=== PATIENT | female | born 1965 ===

== ENCOUNTER 2018-05-20 13:37 | Emergency (ER) | payer MEDICAID, OTHER ==
[2018-05-20 13:46] VITALS: TEMP 98.6; O2SAT 98; BMI 26.2
--- NOTE | 2018-05-20 14:25 | ED PDOC ---
Arrival/HPI - General Chief Complaint: ENT Problem Time Seen by Provider: 05/20/18 13:52 Historian: Patient - History of Present Illness Narrative History of Present Illness (Text): 05/20/18 14:21 Pt is a 52 yr old female with PMH of seasonal allergies that presents to the ED with cough, headache, and sore throat x 2 days. Pt states that she has a dry cough with an associated headache. Reports that she works in a very kathy environment and feels that she may be inhaling a lot it in addition to seasonal allergens. Denies sob, cp, fever, chills, stomach or back pain, n/v/d, recent travel or any other complaints. Time/Duration: Prior to Arrival Symptom Onset: Gradual Symptom Course: Unchanged Quality: Aching Severity Level: 4 Activities at Onset: Rest Context: Home, Work Past Medical History - Provider Review Nursing Documentation Reviewed: Yes - Travel History Have you recently traveled outside [place] w/in the past 3 mons?: No - Infectious Disease Hx of Infectious Diseases: None - Reproductive Menopause: No - Cardiac Hx Cardiac Disorders: No - Pulmonary Hx Respiratory Disorders: No - Neurological Hx Neurological Disorder: No - HEENT Hx HEENT Disorder: No - Renal Hx Renal Disorder: No - Endocrine/Metabolic Hx Endocrine Disorders: No - Hematological/Oncological Hx Blood Disorders: No - Integumentary Hx Dermatological Disorder: No - Musculoskeletal/Rheumatological Hx Musculoskeletal Disorders: No - Gastrointestinal Hx Gastrointestinal Disorders: No - Genitourinary/Gynecological Hx Genitourinary Disorders: No - Psychiatric Hx Psychophysiologic Disorder: No Hx Substance Use: No - Surgical History Hx Section: Yes (x2) - Anesthesia Hx Anesthesia Reactions: No Hx Malignant Hyperthermia: No Family/Social History - Physician Review Nursing Documentation Reviewed: Yes Family/Social History: Unknown Family HX Smoking Status: Never Smoked Hx Alcohol Use: No Hx Substance Use: No Allergies/Home Meds Allergies/Adverse Reactions: Allergies No Known Allergies Allergy (Verified 05/20/18 13:46) Review of Systems - Review of Systems Systems not reviewed;Unavailable: Language Barrier Constitutional: Normal, Fevers. absent: Fatigue Eyes: Normal. absent: Vision Changes ENT: Normal, Sore Throat, Rhinorrhea, Sinus Congestion Respiratory: Normal, Cough. absent: SOB, Sputum, Wheezing Cardiovascular: Normal. absent: Chest Pain Gastrointestinal: Normal. absent: Abdominal Pain Genitourinary Female: Normal Musculoskeletal: Normal Skin: Normal Neurological: Normal Endocrine: Normal Hemo/Lymphatic: Normal Psychiatric: Normal Physical Exam Vital Signs Reviewed: Yes Vital Signs Temp Pulse Resp BP Pulse Ox 05/20/18 15:42 72 16 120/77 05/20/18 13:43 98.6 F 81 18 117/68 98 Temperature: Afebrile Blood Pressure: Normal Pulse: Regular Respiratory Rate: Normal Appearance: Positive for: Well-Appearing, Non-Toxic, Comfortable Pain Distress: None Mental Status: Positive for: Alert and Oriented X 3 - Systems Exam Head: Present: Atraumatic, Normocephalic Pupils: Present: PERRL Conjunctiva: Present: Normal. No: Injected Mouth: Present: Moist Mucous Membranes, Normal Lips, Normal Tounge Pharnyx: Present: ERYTHEMA. No: EXUDATE, TONSILS ENLARGED, Peritonsilar Swelling, Uvular Deviation Nose (Internal): Present: Normal Inspection Neck: Present: Normal Range of Motion Respiratory/Chest: Present: Clear to Auscultation, Good Air Exchange. No: Respiratory Distress, Accessory Muscle Use, Wheezes, Rhonchi Cardiovascular: Present: Regular Rate and Rhythm, Normal S1, S2. No: Murmurs Abdomen: Present: Normal Bowel Sounds. No: Tenderness, Distention, Peritoneal Signs Back: Present: Normal Inspection Upper Extremity: Present: Normal Inspection. No: Cyanosis, Edema Lower Extremity: Present: Normal Inspection. No: Edema Neurological: Present: GCS=15, CN II-XII Intact, Speech Normal Skin: Present: Warm, Dry, Normal Color. No: Rashes Psychiatric: Present: Alert, Oriented x 3, Normal Insight, Normal Concentration Medical Decision Making ED Course and Treatment: 05/20/18 14:25 Impression Pt is a 52 yr old female with PMH of seasonal allergies that presents to the ED with cough, headache, and sore throat x 2 days. Plan Rapid strep CXR assess and dispo Progress note Neg GAS CXR unremarkable ventolin IH and tessalon and ibuprofen rx f/u with PMD in 2 days supportive care at home with fluids, rest and avoid cough triggers VSS on d/c 05/20/18 15:16 Strep GrpA NEG d/c home with ventolin, tessalon and motrin f/u with PMD in 2 days - Lab Interpretations Lab Results: Lab Results 05/20/18 14:15: Grp A Beta Strep Ag Negative - RAD Interpretation Radiology Orders: 05/20/18 14:10 CXR [CHEST PORTABLE] [RAD] Stat Disposition/Present on Arrival - Present on Arrival Any Indicators Present on Arrival: Yes History of DVT/PE: No History of Uncontrolled Diabetes: No Urinary Catheter: No History of Decub. Ulcer: No History Surgical Site Infection Following: None - Disposition Have Diagnosis and Disposition been Completed?: Yes Diagnosis: Allergic rhinitis due to allergen Disposition: HOME/ ROUTINE Disposition Time: 15:18 Patient Plan: Discharge Condition: STABLE Discharge Instructions (ExitCare): Seasonal Allergies in Adults Print Language: TANZANIAN Additional Instructions: GIO DIGGS, thank you for letting us take care of you today. Your provider was Elia Bell DO and CAMILA Bradford and you were treated for SEASONAL ALLERGIES AND COUGH. The emergency medical care you received today was directed at your acute symptoms. If you were prescribed any medication, please fill it and take as directed. It may take several days for your symptoms to resolve. Return to the Emergency Department if your symptoms worsen, do not improve, or if you have any other problems. PLEASE FOLLOW UP WITH YOUR PRIMARY CARE DOCTOR IN 2 DAYS FOR ON-GOING CARE Please contact your doctor or call one of the physicians/clinics you have been referred to that are listed on the Patient Visit Information form that is included in your discharge packet. Bring any paperwork you were given at discharge with you along with any medications you are taking to your follow up visit. Our treatment cannot replace ongoing medical care by a primary care provider outside of the emergency department. Thank you for allowing the [facility] team to be part of your care today. If you had an X-Ray or CT scan: A Radiologist will review the ED reading if any change in treatment is needed we will contact you. Prescriptions: Albuterol Sulfate [Ventolin Hfa] 1 puff IH Q4 PRN 30 Days #1 unit PRN Reason: Allergy Symptoms Benzonatate [Tessalon Perle] 100 mg PO Q8 5 Days #15 capsule Ibuprofen [Motrin Tab] 400 mg PO Q6 #20 tab Referrals: [facility] [place] - Follow up with primary Forms: [employer] (Bahraini), WORK NOTE
--- NOTE | 2018-05-20 14:53 | RAD ---
Date of service: 05/20/2018 HISTORY: COUGH COMPARISON: No prior. FINDINGS: LUNGS: No active pulmonary disease. PLEURA: No significant pleural effusion identified, no pneumothorax apparent. CARDIOVASCULAR: Normal. OSSEOUS STRUCTURES: No significant abnormalities. VISUALIZED UPPER ABDOMEN: Normal. OTHER FINDINGS: None. IMPRESSION: No active disease.
[2018-05-20 15:43] VITALS: BP 120/77; PULSE 72; RESP 16
== END 2018-05-20 15:42 | disposition home or self-care (01) ==
LOC: ED 13:37
DX: J30.9 Allergic rhinitis, unspecified (principal)